=== PATIENT | male | born 1935 | race American Indian/Alaskan Native ===

== ENCOUNTER 2018-02-20 13:13 | Inpatient (IN) | payer MEDICARE ==
[2018-02-20 14:44] LABS: Basophils % (Auto) 0.3 % (0.0-1.8); Eosinophils # (Auto) 0.1 K/mm3 (0.0-0.4); Eosinophils % (Auto) 0.8 % (0.0-4.3); Hematocrit 34.7 % (35.5-45.6); Hemoglobin 11.4 gm/dl (11.8-15.2); Lymphocytes # (Auto) 1.1 K/mm3 (1.2-5.4); Mean Corpuscular HGB Conc 33 % (32-34); Mean Corpuscular Hemoglobin 32 pg (28-32); Mean Corpuscular Volume 97 fl (84-94); Monocytes # (Auto) 0.3 K/mm3 (0.0-0.8); Monocytes % (Auto) 3.2 % (0.0-7.3); Platelet Count 209 K/mm3 (140-440); Red Blood Count 3.59 M/mm3 (3.65-5.03); Red Cell Distribution Width 14.5 % (13.2-15.2)
--- NOTE | 2018-02-20 15:09 | XRay Report ---
Portable chest: Shortness of breath. The lungs are hyperlucent and hyperinflated. There are no nodules and no infiltrates. The heart is normal in size and contour. No vascular congestion. No prior exams for comparison. Pression: Chronic lung disease. No acute findings suspected.
[2018-02-20 15:10] LABS: Calcium 9.3 mg/dL (8.4-10.2)
[2018-02-20 15:13] LABS: Albumin 3.5 g/dL (3.9-5); Bilirubin,Direct 0.3 mg/dL (0-0.2)
[2018-02-20] MEDS ORDERED: NACL 0.9% 1000 ML 1,000 ML IV ONE (15:47)
--- NOTE | 2018-02-20 15:47 | Emergency Department Report ---
ED General Adult HPI - General Chief complaint: Dental/Oral Stated complaint: EVAL FOR G-TUBE Time Seen by Provider: 02/20/18 14:11 Source: patient, family, EMS Mode of arrival: Stretcher Limitations: Physical Limitation - History of Present Illness Initial comments: Patient was sent to this facility for evaluation of difficulty in swallowing. According to triage she has been choking and unable to eat. At time of my encounter and when the nurse checked him in he was not complaining of any dysphagia or choking recently. He did to me say that at times he has trouble with his pills. He denies coughing or shortness of breath. He looks obviously dehydrated. His family is not available for further interview. However, I have heard that they were interested in [place] hospitalization. I am attempting to contact them. We are generally unable to transfer patient's with emergency medical conditions [address] [place] [address] however. -: unknown Associated Symptoms: denies other symptoms - Related Data Allergies Allergy/AdvReac Type Severity Reaction Status Date / Time No Known Allergies Allergy Unverified 02/20/18 14:07 ED Review of Systems ROS: Stated complaint: EVAL FOR G-TUBE Other details as noted in HPI Constitutional: weakness (not complaining of weakness but apparently weak). denies: chills, fever Eyes: denies: eye pain, eye discharge, vision change ENT: denies: ear pain, throat pain Respiratory: denies: cough, shortness of breath, wheezing Cardiovascular: denies: chest pain, palpitations Endocrine: no symptoms reported Gastrointestinal: as per HPI. denies: abdominal pain, nausea, diarrhea Genitourinary: denies: urgency, dysuria Musculoskeletal: denies: back pain, joint swelling, arthralgia Skin: denies: rash, lesions Neurological: denies: headache, weakness, paresthesias Psychiatric: denies: anxiety, depression Hematological/Lymphatic: denies: easy bleeding, easy bruising ED Past Medical Hx - Past Medical History Previous Medical History?: Yes Hx Hypertension: Yes Hx GERD: Yes Hx Renal Disease: Yes Hx Dementia: Yes - Social History Smoking Status: Never Smoker Substance Use Type: None ED Physical Exam - General Limitations: Physical Limitation General appearance: alert, in no apparent distress, other (volume depleted) - Head Head exam: Present: atraumatic, normocephalic - Eye Eye exam: Present: normal appearance, scleral icterus - ENT ENT exam: Present: mucous membranes moist - Neck Neck exam: Present: normal inspection. Absent: tenderness, meningismus - Respiratory Respiratory exam: Present: normal lung sounds bilaterally. Absent: respiratory distress - Cardiovascular Cardiovascular Exam: Present: regular rate, normal rhythm. Absent: systolic murmur, diastolic murmur, rubs, gallop - GI/Abdominal GI/Abdominal exam: Present: soft, normal bowel sounds. Absent: distended, tenderness, guarding, rebound, rigid - Rectal Rectal exam: Present: deferred - Extremities Exam Extremities exam: Present: normal inspection, other (generally stiff but no deformity) - Back Exam Back exam: Present: normal inspection - Neurological Exam Neurological exam: Present: alert, oriented X3, CN II-XII intact (past intestinal), other (no acute focal deficit found). Absent: motor sensory deficit (has some generalized rigidity) - Psychiatric Psychiatric exam: Present: normal affect, normal mood - Skin Skin exam: Present: warm, dry, intact, normal color. Absent: rash ED Course Vital Signs 02/20/18 14:00 Temperature 98.5 F Pulse Rate 77 Respiratory 16 Rate Blood Pressure 118/61 O2 Sat by Pulse 98 Oximetry - Reevaluation(s) Reevaluation #1: IV fluids initiated. A a fluoroscopic swallow screen has been completed. Urinalysis is yet pending. The patient will be admitted for rehydration and further care and evaluation. 02/20/18 15:54 ED Medical Decision Making - Lab Data Result diagrams: 02/20/18 14:28 02/20/18 14:28 Laboratory Results - last 24 hr 02/20/18 02/20/18 02/20/18 14:28 14:28 14:28 WBC 8.0 RBC 3.59 L Hgb 11.4 L Hct 34.7 L MCV 97 H MCH 32 MCHC 33 RDW 14.5 Plt Count 209 Lymph % (Auto) 14.0 Brantley % (Auto) 3.2 Eos % (Auto) 0.8 Baso % (Auto) 0.3 Lymph # 1.1 L Brantley # 0.3 Eos # 0.1 Baso # 0.0 Seg Neutrophils % 81.7 H Seg Neutrophils # 6.5 Sodium 146 H Potassium 5.0 Chloride 107.3 H Carbon Dioxide 27 Anion Gap 17 BUN 62 H Creatinine 1.8 H Estimated GFR 36 BUN/Creatinine Ratio 34 Glucose 102 H Calcium 9.3 Magnesium 2.50 H Total Bilirubin Direct Bilirubin Indirect Bilirubin AST ALT Alkaline Phosphatase Total Protein Albumin Albumin/Globulin Ratio 02/20/18 14:28 WBC RBC Hgb Hct MCV MCH MCHC RDW Plt Count Lymph % (Auto) Brantley % (Auto) Eos % (Auto) Baso % (Auto) Lymph # Brantley # Eos # Baso # Seg Neutrophils % Seg Neutrophils # Sodium Potassium Chloride Carbon Dioxide Anion Gap BUN Creatinine Estimated GFR BUN/Creatinine Ratio Glucose Calcium Magnesium Total Bilirubin 0.70 Direct Bilirubin 0.3 H Indirect Bilirubin 0.4 AST 49 H ALT 36 Alkaline Phosphatase 64 Total Protein 6.1 L Albumin 3.5 L Albumin/Globulin Ratio 1.3 - Radiology Data Radiology results: report reviewed (chest x-ray no acute process) Critical care attestation.: If time is entered above; I have spent that time in minutes in the direct care of this critically ill patient, excluding procedure time. ED Disposition Clinical Impression: Acute renal injury, Prerenal azotemia Dysphagia Qualifiers: Dysphagia type: unspecified Qualified Code(s): R13.10 - Dysphagia, unspecified Disposition: DC-09 OP ADMIT IP TO THIS HOSP Is pt being admited?: Yes Does the pt Need Aspirin: No Condition: Stable Time of Disposition: 15:55
[2018-02-20] MEDS ORDERED: BABY ASPIRIN PO ONE (15:56)
--- NOTE | 2018-02-20 16:02 | Fluoroscopy Report ---
Barium swallow: Dysphasia. Examination perform a limited basis due to patient's physical restrictions. In the semiupright position the patient was given barium. A small amount was swallowed. The swallowing mechanism could not be evaluated however the mid and distal esophagus appeared to distend normally and there was relatively good passage of barium into the distal esophagus emptying into the stomach. No ulcerations or stenoses identified. In the latter stages of the exam a small amount contrast is identified in the bronchial tree with no respiratory response. The patient was able swallow water with no gross evidence of reflux. Impressions: Limited exam. No evidence of esophageal obstruction. Silent aspiration. Recommendation: Speech therapy consult for evaluation of aspiration. 1.8 minutes of fluoroscopy utilized. 16 spot films obtained.
[2018-02-20 18:10] LABS: Bacteria,Urine 4+ /HPF (Negative); Bilirubin,Urine NEG (Negative); Blood,Urine MOD (Negative); Color,Urine Yellow (Yellow); Mucus,Urine FEW /HPF; Protein,Urine <15 mg/dL mg/dL (Negative)
--- NOTE | 2018-02-20 19:16 | History and Physical Report ---
History of Present Illness Date of admission: 02/20/18 15:47 Chief complaint: He is confused and he keeps choking History of present illness: 82 YO Male SNF Resident at [facility] with HTN, GERD, Dementia, Debility, Malnutrition presents to ED for evaluation. Pt confused, and unable to provide detailed history. Pt history provided by family who is at bedside during exam and interview. As per family, the patient has experienced confusing , and coughing after meals, choking on his food, and shortness of breath over the past 3 weeks, with worsening symptoms over the past 1 week. Pt family is interested in PEG tube placement. Pt seen and evaluated in ED and found tohave ARF, UTI, and Encephalopathy. Pt admitted to medical floor. Past History Past Medical History: GERD, hypertension, other (dementia, debility, malnutrition) Past Surgical History: No surgical history, Other (reviewed) Social history: single. denies: smoking, alcohol abuse, prescription drug abuse Family history: hypertension Medications and Allergies Allergies Allergy/AdvReac Type Severity Reaction Status Date / Time No Known Allergies Allergy Unverified 02/20/18 14:07 Home Medications Medication Instructions Recorded Confirmed Last Taken Type Acetaminophen [Acetaminophen ER 650 mg PO Q6H PRN 02/20/18 02/20/18 Unknown History TAB] Albuterol Sulfate [Albuterol 0.63% 0.63 mg IH TID PRN 02/20/18 02/20/18 Unknown History NEBS] Docusate Sodium [Colace] 100 mg PO BID 02/20/18 02/20/18 Unknown History Gabapentin [Neurontin] 300 mg PO QHS 02/20/18 02/20/18 Unknown History Melatonin/Pyridoxine HCl (B6) 1 each PO QHS 02/20/18 02/20/18 Unknown History [Melatonin 3 mg Tablet] Memantine [Namenda] 5 mg PO QDAY 02/20/18 02/20/18 Unknown History Omeprazole 40 mg PO DAILY 02/20/18 02/20/18 Unknown History Sennosides [Senna] 17.2 mg PO BID 02/20/18 02/20/18 Unknown History risperiDONE [RisperiDONE] 1 mg PO QDAY 02/20/18 02/20/18 Unknown History Active Meds: Active Medications Sodium Chloride (Nacl 0.9% 1000 Ml) 1,000 mls @ 125 mls/hr IV ONCE ONE Stop: 02/20/18 23:46 Last Admin: 02/20/18 16:45 Dose: 125 mls/hr Review of Systems ROS unobtainable: due to mental status Exam - Constitutional Vitals: Temp Pulse Resp BP Pulse Ox 98.5 F 71 16 107/56 97 02/20/18 14:00 02/20/18 18:30 02/20/18 18:30 02/20/18 18:30 02/20/18 18:30 General appearance: Present: mild distress, cachectic - EENT Eyes: Present: PERRL ENT: hearing intact, clear oral mucosa - Respiratory Respiratory effort: normal Respiratory: bilateral: CTA - Cardiovascular Heart Sounds: Present: S1 & S2. Absent: rub, click - Extremities Extremities: pulses symmetrical, No edema Peripheral Pulses: within normal limits - Abdominal General gastrointestinal: Present: soft, non-tender, non-distended, normal bowel sounds Male genitourinary: Present: normal - Integumentary Integumentary: Present: clear, dry, clammy, decreased turgor - Musculoskeletal Musculoskeletal: generalized weakness - Psychiatric Psychiatric: no intact judgment & insight, no memory intact - Neurologic Neurologic: moves all extremities, no gait normal Results - Labs CBC & Chem 7: 02/20/18 14:28 02/20/18 14:28 Labs: Abnormal lab results 02/20/18 02/20/18 02/20/18 Range/Units 14:28 14:28 14:28 RBC 3.59 L (3.65-5.03) M/mm3 Hgb 11.4 L (11.8-15.2) gm/dl Hct 34.7 L (35.5-45.6) % MCV 97 H (84-94) fl Lymph # 1.1 L (1.2-5.4) K/mm3 Seg Neutrophils % 81.7 H (40.0-70.0) % Sodium 146 H (137-145) mmol/L Chloride 107.3 H (98-107) mmol/L BUN 62 H (9-20) mg/dL Creatinine 1.8 H (0.8-1.5) mg/dL Glucose 102 H (75-100) mg/dL Magnesium 2.50 H (1.7-2.3) mg/dL Direct Bilirubin (0-0.2) mg/dL AST (5-40) units/L Total Protein (6.3-8.2) g/dL Albumin (3.9-5) g/dL 02/20/18 Range/Units 14:28 RBC (3.65-5.03) M/mm3 Hgb (11.8-15.2) gm/dl Hct (35.5-45.6) % MCV (84-94) fl Lymph # (1.2-5.4) K/mm3 Seg Neutrophils % (40.0-70.0) % Sodium (137-145) mmol/L Chloride (98-107) mmol/L BUN (9-20) mg/dL Creatinine (0.8-1.5) mg/dL Glucose (75-100) mg/dL Magnesium (1.7-2.3) mg/dL Direct Bilirubin 0.3 H (0-0.2) mg/dL AST 49 H (5-40) units/L Total Protein 6.1 L (6.3-8.2) g/dL Albumin 3.5 L (3.9-5) g/dL Assessment and Plan - Patient Problems (1) UTI (urinary tract infection) Current Visit: Yes Status: Acute Qualifiers: Encounter type: initial encounter Plan to address problem: IV antibiotic therapy, IVF resuscitation, supportive care. (2) ARF (acute renal failure) Current Visit: Yes Status: Acute Qualifiers: Acute renal failure type: with acute tubular necrosis Qualified Code(s): N17.0 - Acute kidney failure with tubular necrosis Plan to address problem: IVF resuscitation therapy, monitor uop q shift, urinalysis, monitor serum creatnine (3) Encephalopathy Current Visit: Yes Status: Acute Plan to address problem: CT head, treat UTI, monitor uop q shift, neuro checks, aspiiration precautions, fall precautions, IVF resuscitation (4) Dysphagia Current Visit: Yes Status: Acute Qualifiers: Dysphagia type: unspecified Qualified Code(s): R13.10 - Dysphagia, unspecified Plan to address problem: Suspect secondary to worsening dementia, Will treat UTI, and monitor for improvement, Speech therapy consulted for swallow evaluation. If no improvement with treatment of UTI, will consult GI for PEG placement. (5) DVT prophylaxis Current Visit: Yes Status: Acute Plan to address problem: SCD to BLE while in bed.
[2018-02-20] MEDS ORDERED: PROVENTIL IH PRN (20:36)
[2018-02-20] MEDS ORDERED: SODIUM CHLORIDE FLUSH SYRINGE 10 ML IV PRN (20:36)
[2018-02-20] MEDS ORDERED: ZOFRAN IV PRN (20:36)
[2018-02-20] MEDS ORDERED: NON-FORMULARY (Acetaminophen [Acetaminophen Er Tab] 650 MG) PO PRN (20:38)
[2018-02-20] MEDS ORDERED: PYRIDOXINE HCL PO SCH (22:00)
[2018-02-20] MEDS ORDERED: MELATONIN PO SCH (22:00)
[2018-02-20] MEDS: SENOKOT PO SCH (22:51)
[2018-02-20] MEDS: COLACE PO SCH (22:51)
[2018-02-20] MEDS: D5/0.45NS 1,000 ML IV SCH (22:52)
[2018-02-20] MEDS: NEURONTIN PO SCH (22:52)
[2018-02-20] MEDS: SODIUM CHLORIDE FLUSH SYRINGE 10 ML IV SCH (22:53)
--- NOTE | 2018-02-21 07:58 | Cat Scan Report ---
CT HEAD WITHOUT CONTRAST: HISTORY: Confusion. TECHNIQUE: Sequential CT images without contrast. FINDINGS: Images obtained show bilateral prominence of the sulci and ventricles. There are no abnormal intra- or extra-axial blood or fluid collections. There are no focal masses or evidence of mass effect. The zayas white matter differentiation appears within normal limits. Regions of periventricular decreased attenuation are consistent with microangiopathic ischemic disease. The posterior fossa structures including the fourth ventricle, cerebellum, and brainstem appear normal. There is a focal hyperdensity in the left side of the basilar artery on image 19 which probably represents a vascular calcification. IMPRESSION: Evidence of atrophy and microangiopathic ischemic disease. No acute intracranial process noted.
[2018-02-21] MEDS ORDERED: NON-FORMULARY (Omeprazole [Omeprazole] 40 MG) PO SCH (10:00)
[2018-02-21] MEDS: COLACE PO SCH ×2 (10:07→23:35)
[2018-02-21] MEDS: NAMENDA PO SCH (10:07)
[2018-02-21] MEDS: PROTONIX PO SCH (10:07)
[2018-02-21] MEDS: SODIUM CHLORIDE FLUSH SYRINGE 10 ML IV SCH ×2 (10:07→23:59)
[2018-02-21] MEDS: RisperDAL PO SCH (10:07)
[2018-02-21] MEDS: SENOKOT PO SCH ×2 (10:07→23:36)
--- NOTE | 2018-02-21 11:08 | Progress Note ---
Assessment and Plan Assessment and plan: --Dysphagia; with poor oral intake Speech and swallow evaluation, possible modified barium swallow If abnormal possible PEG placement --Severe malnutrition secondary to poor oral intake, poor oral intake Supportive care, nutrition supplements Swallow evaluation, PEG placement as needed --Acute kidney injury; secondary to ATN Gentle hydration, monitor renal function and avoid nephrotoxins Nephrology evaluation needed --Hypertension; continue current antihypertensives and when necessary medication --Sepsis Secondary to UTI; empiric antibiotics, follow cultures, IV fluids and supportive care --Dementia; supportive care --DVT prophylaxis; Lovenox renal dose --Full CODE STATUS Follow modified barium swallow, speech evaluation If abnormal, GI consultation for PEG placement Plan of care reviewed with the patient's nurse History Interval history: Patient seen and examined medical records reviewed 82-year-old senior living resident was admitted through emergency room with malnutrition and poor oral intake and dysphagia, for evaluation of PEG tube placement Patient is noncommunicative Not in acute distress Vital signs reviewed No new events reported by the nursing staff Hospitalist Physical - Constitutional Vitals: Temp Pulse Resp BP Pulse Ox 98.5 F 81 20 106/52 95 02/21/18 07:17 02/21/18 07:17 02/21/18 07:17 02/21/18 07:17 02/21/18 07:17 General appearance: Present: no acute distress, cachectic, disheveled, other ( nonverbal) - EENT Eyes: Present: PERRL, EOM intact - Neck Neck: Present: supple, normal ROM - Respiratory Respiratory effort: normal Respiratory: bilateral: diminished, rhonchi, negative: rales, wheezing - Cardiovascular Rhythm: regular Heart Sounds: Present: S1 & S2 - Extremities Extremities: no ischemia, No edema - Abdominal General gastrointestinal: soft, non-tender, non-distended, normal bowel sounds - Integumentary Integumentary: Present: clear, warm - Psychiatric Psychiatric: other (noncommunicative) - Neurologic Neurologic: other (noncommunicative) Results - Labs CBC & Chem 7: 02/20/18 14:28 02/20/18 14:28 Labs: Laboratory Last Values WBC 8.0 K/mm3 (4.5-11.0) 02/20/18 14:28 RBC 3.59 M/mm3 (3.65-5.03) L 02/20/18 14:28 Hgb 11.4 gm/dl (11.8-15.2) L 02/20/18 14:28 Hct 34.7 % (35.5-45.6) L 02/20/18 14:28 MCV 97 fl (84-94) H 02/20/18 14:28 MCH 32 pg (28-32) 02/20/18 14:28 MCHC 33 % (32-34) 02/20/18 14:28 RDW 14.5 % (13.2-15.2) 02/20/18 14:28 Plt Count 209 K/mm3 (140-440) 02/20/18 14:28 Lymph % (Auto) 14.0 % (13.4-35.0) 02/20/18 14:28 Faulkner % (Auto) 3.2 % (0.0-7.3) 02/20/18 14:28 Eos % (Auto) 0.8 % (0.0-4.3) 02/20/18 14:28 Baso % (Auto) 0.3 % (0.0-1.8) 02/20/18 14:28 Lymph # 1.1 K/mm3 (1.2-5.4) L 02/20/18 14:28 Faulkner # 0.3 K/mm3 (0.0-0.8) 02/20/18 14:28 Eos # 0.1 K/mm3 (0.0-0.4) 02/20/18 14:28 Baso # 0.0 K/mm3 (0.0-0.1) 02/20/18 14:28 Seg Neutrophils % 81.7 % (40.0-70.0) H 02/20/18 14:28 Seg Neutrophils # 6.5 K/mm3 (1.8-7.7) 02/20/18 14:28 Sodium 146 mmol/L (137-145) H 02/20/18 14:28 Potassium 5.0 mmol/L (3.6-5.0) 02/20/18 14:28 Chloride 107.3 mmol/L (98-107) H 02/20/18 14:28 Carbon Dioxide 27 mmol/L (22-30) 02/20/18 14:28 Anion Gap 17 mmol/L 02/20/18 14:28 BUN 62 mg/dL (9-20) H 02/20/18 14:28 Creatinine 1.8 mg/dL (0.8-1.5) H 02/20/18 14:28 Estimated GFR 36 ml/min 02/20/18 14:28 BUN/Creatinine Ratio 34 % 02/20/18 14:28 Glucose 102 mg/dL (75-100) H 02/20/18 14:28 Calcium 9.3 mg/dL (8.4-10.2) 02/20/18 14:28 Magnesium 2.50 mg/dL (1.7-2.3) H 02/20/18 14:28 Total Bilirubin 0.70 mg/dL (0.1-1.2) 02/20/18 14:28 Direct Bilirubin 0.3 mg/dL (0-0.2) H 02/20/18 14:28 Indirect Bilirubin 0.4 mg/dL 02/20/18 14:28 AST 49 units/L (5-40) H 02/20/18 14:28 ALT 36 units/L (7-56) 02/20/18 14:28 Alkaline Phosphatase 64 units/L (35-129) 02/20/18 14:28 Total Protein 6.1 g/dL (6.3-8.2) L 02/20/18 14:28 Albumin 3.5 g/dL (3.9-5) L 02/20/18 14:28 Albumin/Globulin Ratio 1.3 % 02/20/18 14:28 Urine Color Yellow (Yellow) 02/20/18 17:40 Urine Turbidity Clear (Clear) 02/20/18 17:40 Urine pH 5.0 (5.0-7.0) 02/20/18 17:40 Ur Specific Wiggins 1.017 (1.003-1.030) 02/20/18 17:40 Urine Protein <15 mg/dl mg/dL (Negative) 02/20/18 17:40 Urine Glucose (UA) Neg mg/dL (Negative) 02/20/18 17:40 Urine Ketones Neg mg/dL (Negative) 02/20/18 17:40 Urine Blood Mod (Negative) 02/20/18 17:40 Urine Nitrite Pos (Negative) 02/20/18 17:40 Urine Bilirubin Neg (Negative) 02/20/18 17:40 Urine Urobilinogen 2.0 mg/dL (<2.0) 02/20/18 17:40 Ur Leukocyte Esterase Mod (Negative) 02/20/18 17:40 Urine WBC (Auto) 5.0 /HPF (0.0-6.0) 02/20/18 17:40 Urine RBC (Auto) 1.0 /HPF (0.0-6.0) 02/20/18 17:40 U Epithel Cells (Auto) 1.0 /HPF (0-13.0) 02/20/18 17:40 Urine Bacteria (Auto) 4+ /HPF (Negative) 02/20/18 17:40 Urine Mucus Few /HPF 02/20/18 17:40
[2018-02-21] MEDS: cefTRIAXone 1 GM in NACL 0.9% 20 ML IV SCH (12:01)
[2018-02-21] MEDS: D5/0.45NS 1,000 ML IV SCH (12:12)
[2018-02-21] MEDS: NEURONTIN PO SCH (23:36)
[2018-02-22] MEDS: D5/0.45NS 1,000 ML IV SCH ×2 (01:40→14:32)
[2018-02-22 05:26] LABS: Basophils % (Auto) 0.7 % (0.0-1.8); Eosinophils % (Auto) 0.9 % (0.0-4.3); Hematocrit 31.6 % (35.5-45.6); Hemoglobin 10.7 gm/dl (11.8-15.2); Lymphocytes # (Auto) 0.8 K/mm3 (1.2-5.4); Lymphocytes % (Auto) 15.1 % (13.4-35.0); Mean Corpuscular HGB Conc 34 % (32-34); Mean Corpuscular Hemoglobin 32 pg (28-32); Mean Corpuscular Volume 96 fl (84-94); Monocytes # (Auto) 0.3 K/mm3 (0.0-0.8); Monocytes % (Auto) 5.2 % (0.0-7.3); Platelet Count 185 K/mm3 (140-440); Red Cell Distribution Width 14.3 % (13.2-15.2)
[2018-02-22 05:42] LABS: Calcium 8.8 mg/dL (8.4-10.2)
--- NOTE | 2018-02-22 08:28 | Progress Note ---
Assessment and Plan Assessment and plan: --Dysphagia; with poor oral intake/aspiration risk Speech and swallow evaluated the patient , recommend modified barium swallow Scheduled for today , if abnormal may consider GI evaluation for possible PEG placement Consider tube feeding --Severe malnutrition secondary to poor oral intake, poor oral intake Supportive care, nutrition supplements Follow modified begin swallow, GI evaluation is needed --Acute kidney injury; secondary to ATN Mild improvement , continue Gentle hydration, monitor renal function and avoid nephrotoxins nephrology if needed --Hypertension; well controlled continue current antihypertensives and when necessary medication --Sepsis Secondary to UTI; urine culture positive for gram-negative rods Continued assessment , follow sensitivities and adjust antibiotics accordingly --Dementia; supportive care --DVT prophylaxis; Lovenox renal dose --Full CODE STATUS Disposition ;Follow modified barium swallow, If abnormal, GI consultation for PEG placement Plan of care reviewed with the patient's nurse History Interval history: Patient seen and examined medical records reviewed Swallow evaluation is in progress modified barium swallow study is requested for today Patient is severely malnourished, cachectic Vital signs reviewed Hospitalist Physical - Constitutional Vitals: Temp Pulse Resp BP Pulse Ox 99.5 F 95 H 16 135/62 97 02/22/18 07:30 02/22/18 07:30 02/22/18 07:30 02/22/18 07:30 02/22/18 07:30 General appearance: Present: no acute distress, cachectic, disheveled, other ( nonverbal) - EENT Eyes: Present: PERRL, EOM intact - Neck Neck: Present: supple, normal ROM - Respiratory Respiratory effort: normal Respiratory: bilateral: diminished, negative: rales, rhonchi, wheezing - Cardiovascular Rhythm: regular Heart Sounds: Present: S1 & S2 - Extremities Extremities: no ischemia, No edema - Abdominal General gastrointestinal: soft, non-tender, non-distended, normal bowel sounds - Integumentary Integumentary: Present: clear, warm - Psychiatric Psychiatric: other (minimally communicative) - Neurologic Neurologic: moves all extremities Results - Labs CBC & Chem 7: 02/22/18 05:14 02/22/18 05:14 Labs: Laboratory Last Values WBC 5.0 K/mm3 (4.5-11.0) 02/22/18 05:14 RBC 3.30 M/mm3 (3.65-5.03) L 02/22/18 05:14 Hgb 10.7 gm/dl (11.8-15.2) L 02/22/18 05:14 Hct 31.6 % (35.5-45.6) L 02/22/18 05:14 MCV 96 fl (84-94) H 02/22/18 05:14 MCH 32 pg (28-32) 02/22/18 05:14 MCHC 34 % (32-34) 02/22/18 05:14 RDW 14.3 % (13.2-15.2) 02/22/18 05:14 Plt Count 185 K/mm3 (140-440) 02/22/18 05:14 Lymph % (Auto) 15.1 % (13.4-35.0) 02/22/18 05:14 Phillips % (Auto) 5.2 % (0.0-7.3) 02/22/18 05:14 Eos % (Auto) 0.9 % (0.0-4.3) 02/22/18 05:14 Baso % (Auto) 0.7 % (0.0-1.8) 02/22/18 05:14 Lymph # 0.8 K/mm3 (1.2-5.4) L 02/22/18 05:14 Phillips # 0.3 K/mm3 (0.0-0.8) 02/22/18 05:14 Eos # 0.0 K/mm3 (0.0-0.4) 02/22/18 05:14 Baso # 0.0 K/mm3 (0.0-0.1) 02/22/18 05:14 Seg Neutrophils % 78.1 % (40.0-70.0) H 02/22/18 05:14 Seg Neutrophils # 3.9 K/mm3 (1.8-7.7) 02/22/18 05:14 Sodium 147 mmol/L (137-145) H 02/22/18 05:14 Potassium 4.7 mmol/L (3.6-5.0) 02/22/18 05:14 Chloride 111.3 mmol/L (98-107) H 02/22/18 05:14 Carbon Dioxide 27 mmol/L (22-30) 02/22/18 05:14 Anion Gap 13 mmol/L 02/22/18 05:14 BUN 37 mg/dL (9-20) H 02/22/18 05:14 Creatinine 1.6 mg/dL (0.8-1.5) H 02/22/18 05:14 Estimated GFR 50 ml/min 02/22/18 05:14 BUN/Creatinine Ratio 23 % 02/22/18 05:14 Glucose 118 mg/dL (75-100) H 02/22/18 05:14 Calcium 8.8 mg/dL (8.4-10.2) 02/22/18 05:14 Phosphorus 2.60 mg/dL (2.5-4.5) 02/22/18 05:14 Magnesium 2.10 mg/dL (1.7-2.3) 02/22/18 05:14 Total Bilirubin 0.70 mg/dL (0.1-1.2) 02/20/18 14:28 Direct Bilirubin 0.3 mg/dL (0-0.2) H 02/20/18 14:28 Indirect Bilirubin 0.4 mg/dL 02/20/18 14:28 AST 49 units/L (5-40) H 02/20/18 14:28 ALT 36 units/L (7-56) 02/20/18 14:28 Alkaline Phosphatase 64 units/L (35-129) 02/20/18 14:28 Total Protein 6.1 g/dL (6.3-8.2) L 02/20/18 14:28 Albumin 3.5 g/dL (3.9-5) L 02/20/18 14:28 Albumin/Globulin Ratio 1.3 % 02/20/18 14:28 Urine Color Yellow (Yellow) 02/20/18 17:40 Urine Turbidity Clear (Clear) 02/20/18 17:40 Urine pH 5.0 (5.0-7.0) 02/20/18 17:40 Ur Specific Leonard 1.017 (1.003-1.030) 02/20/18 17:40 Urine Protein <15 mg/dl mg/dL (Negative) 02/20/18 17:40 Urine Glucose (UA) Neg mg/dL (Negative) 02/20/18 17:40 Urine Ketones Neg mg/dL (Negative) 02/20/18 17:40 Urine Blood Mod (Negative) 02/20/18 17:40 Urine Nitrite Pos (Negative) 02/20/18 17:40 Urine Bilirubin Neg (Negative) 02/20/18 17:40 Urine Urobilinogen 2.0 mg/dL (<2.0) 02/20/18 17:40 Ur Leukocyte Esterase Mod (Negative) 02/20/18 17:40 Urine WBC (Auto) 5.0 /HPF (0.0-6.0) 02/20/18 17:40 Urine RBC (Auto) 1.0 /HPF (0.0-6.0) 02/20/18 17:40 U Epithel Cells (Auto) 1.0 /HPF (0-13.0) 02/20/18 17:40 Urine Bacteria (Auto) 4+ /HPF (Negative) 02/20/18 17:40 Urine Mucus Few /HPF 02/20/18 17:40
[2018-02-22] MEDS: COLACE PO SCH ×2 (09:51→21:57)
[2018-02-22] MEDS: NAMENDA PO SCH (09:51)
[2018-02-22] MEDS: SENOKOT PO SCH ×2 (09:51→21:57)
[2018-02-22] MEDS: SODIUM CHLORIDE FLUSH SYRINGE 10 ML IV SCH ×2 (09:51→21:58)
[2018-02-22] MEDS: RisperDAL PO SCH (09:51)
[2018-02-22] MEDS: PROTONIX PO SCH (09:51)
[2018-02-22] MEDS: cefTRIAXone 1 GM in NACL 0.9% 20 ML IV SCH (14:32)
[2018-02-22] MEDS ORDERED: SODIUM BICARBONATE FEEDTUBE PRN ×2 (16:01→16:46)
[2018-02-22] MEDS ORDERED: PANCREAZE DR 10,500 UNIT FEEDTUBE PRN ×2 (16:01→16:46)
[2018-02-22] MEDS ORDERED: SIMPLE SYRUP FEEDTUBE PRN ×4 (16:01→16:46)
--- NOTE | 2018-02-22 19:59 | XRay Report ---
FINAL REPORT EXAM: XR ABDOMEN 1V AP HISTORY: Dobhoff placement TECHNIQUE: KUB(s) view of abdomen. PRIORS: None. FINDINGS: Enteric tube tip projects slightly cephalad to EG junction level and should be advanced. Nonspecific bowel gas pattern. No apparent pneumoperitoneum. Diffuse osteopenia and mild dextrorotatory and convex curvature of lumbar spine. IMPRESSION: 1. Enteric tube position as reported. 2. Nonspecific bowel gas pattern, which may represent adynamic ileus. Followup may be warranted.
[2018-02-22] MEDS: NEURONTIN PO SCH (21:57)
--- NOTE | 2018-02-22 22:02 | XRay Report ---
FINAL REPORT EXAM: XR ABDOMEN 1V AP HISTORY: Dobhoff placement TECHNIQUE: KUB(s) view of abdomen. PRIORS: Earlier on same date. FINDINGS: Enteric tube tip now projects at EG junction level and should be advanced. No other significant interval change. IMPRESSION: 1. Enteric tube position as reported.
[2018-02-23] MEDS: D5/0.45NS 1,000 ML IV SCH (06:05)
--- NOTE | 2018-02-23 10:16 | Progress Note ---
Assessment and Plan Assessment and plan: --Dysphagia; with poor oral intake/aspiration risk Speech and swallow evaluated the patient , recommend modified barium swallow Scheduled for yesterday, canceled by speech as radiology was busy, Rescheduled for today ,if abnormal may consider GI evaluation for possible PEG placement Consider tube feeding, unable to pass the Dobbhoff Follow MDS today if unable to feed consider TPN --Severe malnutrition secondary to poor oral intake, poor oral intake Supportive care, nutrition supplements Follow modified begin swallow, GI evaluation is needed --Acute kidney injury; secondary to ATN Mild improvement , continue Gentle hydration, monitor renal function and avoid nephrotoxins nephrology if needed --Hypertension; well controlled continue current antihypertensives and when necessary medication --Sepsis Secondary to UTI; urine culture positive for gram-negative rods Continued assessment , follow sensitivities and adjust antibiotics accordingly --Dementia; supportive care --DVT prophylaxis; Lovenox renal dose --Full CODE STATUS Disposition ;Follow modified barium swallow, If abnormal, GI consultation for PEG placement Plan of care reviewed with the patient's nurse History Interval history: Since seen and examined medical records reviewed Schedule for modified barium swallow today Severely dehydrated cachectic Continue IV fluids Vital signs reviewed Hospitalist Physical - Constitutional Vitals: Temp Pulse Resp BP Pulse Ox 98.7 F 69 18 110/54 100 02/23/18 07:51 02/23/18 07:51 02/23/18 07:51 02/23/18 07:51 02/23/18 07:51 General appearance: Present: no acute distress, cachectic, disheveled - EENT Eyes: Present: PERRL, EOM intact - Neck Neck: Present: supple, normal ROM - Respiratory Respiratory effort: normal Respiratory: bilateral: diminished, negative: rales, rhonchi, wheezing - Cardiovascular Rhythm: regular Heart Sounds: Present: S1 & S2 - Extremities Extremities: no ischemia, No edema - Abdominal General gastrointestinal: soft, non-tender, non-distended, normal bowel sounds - Integumentary Integumentary: Present: clear - Psychiatric Psychiatric: other (minimally communicative) - Neurologic Neurologic: other (minimally communicative) Results - Labs CBC & Chem 7: 02/22/18 05:14 02/22/18 05:14 Labs: Laboratory Last Values WBC 5.0 K/mm3 (4.5-11.0) 02/22/18 05:14 RBC 3.30 M/mm3 (3.65-5.03) L 02/22/18 05:14 Hgb 10.7 gm/dl (11.8-15.2) L 02/22/18 05:14 Hct 31.6 % (35.5-45.6) L 02/22/18 05:14 MCV 96 fl (84-94) H 02/22/18 05:14 MCH 32 pg (28-32) 02/22/18 05:14 MCHC 34 % (32-34) 02/22/18 05:14 RDW 14.3 % (13.2-15.2) 02/22/18 05:14 Plt Count 185 K/mm3 (140-440) 02/22/18 05:14 Lymph % (Auto) 15.1 % (13.4-35.0) 02/22/18 05:14 [place] % (Auto) 5.2 % (0.0-7.3) 02/22/18 05:14 Eos % (Auto) 0.9 % (0.0-4.3) 02/22/18 05:14 Baso % (Auto) 0.7 % (0.0-1.8) 02/22/18 05:14 Lymph # 0.8 K/mm3 (1.2-5.4) L 02/22/18 05:14 [place] # 0.3 K/mm3 (0.0-0.8) 02/22/18 05:14 Eos # 0.0 K/mm3 (0.0-0.4) 02/22/18 05:14 Baso # 0.0 K/mm3 (0.0-0.1) 02/22/18 05:14 Seg Neutrophils % 78.1 % (40.0-70.0) H 02/22/18 05:14 Seg Neutrophils # 3.9 K/mm3 (1.8-7.7) 02/22/18 05:14 Sodium 147 mmol/L (137-145) H 02/22/18 05:14 Potassium 4.7 mmol/L (3.6-5.0) 02/22/18 05:14 Chloride 111.3 mmol/L (98-107) H 02/22/18 05:14 Carbon Dioxide 27 mmol/L (22-30) 02/22/18 05:14 Anion Gap 13 mmol/L 02/22/18 05:14 BUN 37 mg/dL (9-20) H 02/22/18 05:14 Creatinine 1.6 mg/dL (0.8-1.5) H 02/22/18 05:14 Estimated GFR 50 ml/min 02/22/18 05:14 BUN/Creatinine Ratio 23 % 02/22/18 05:14 Glucose 118 mg/dL (75-100) H 02/22/18 05:14 Calcium 8.8 mg/dL (8.4-10.2) 02/22/18 05:14 Phosphorus 2.60 mg/dL (2.5-4.5) 02/22/18 05:14 Magnesium 2.10 mg/dL (1.7-2.3) 02/22/18 05:14 Total Bilirubin 0.70 mg/dL (0.1-1.2) 02/20/18 14:28 Direct Bilirubin 0.3 mg/dL (0-0.2) H 02/20/18 14:28 Indirect Bilirubin 0.4 mg/dL 02/20/18 14:28 AST 49 units/L (5-40) H 02/20/18 14:28 ALT 36 units/L (7-56) 02/20/18 14:28 Alkaline Phosphatase 64 units/L (35-129) 02/20/18 14:28 Total Protein 6.1 g/dL (6.3-8.2) L 02/20/18 14:28 Albumin 3.5 g/dL (3.9-5) L 02/20/18 14:28 Albumin/Globulin Ratio 1.3 % 02/20/18 14:28 Urine Color Yellow (Yellow) 02/20/18 17:40 Urine Turbidity Clear (Clear) 02/20/18 17:40 Urine pH 5.0 (5.0-7.0) 02/20/18 17:40 Ur Specific [place] 1.017 (1.003-1.030) 02/20/18 17:40 Urine Protein <15 mg/dl mg/dL (Negative) 02/20/18 17:40 Urine Glucose (UA) Neg mg/dL (Negative) 02/20/18 17:40 Urine Ketones Neg mg/dL (Negative) 02/20/18 17:40 Urine Blood Mod (Negative) 02/20/18 17:40 Urine Nitrite Pos (Negative) 02/20/18 17:40 Urine Bilirubin Neg (Negative) 02/20/18 17:40 Urine Urobilinogen 2.0 mg/dL (<2.0) 02/20/18 17:40 Ur Leukocyte Esterase Mod (Negative) 02/20/18 17:40 Urine WBC (Auto) 5.0 /HPF (0.0-6.0) 02/20/18 17:40 Urine RBC (Auto) 1.0 /HPF (0.0-6.0) 02/20/18 17:40 U Epithel Cells (Auto) 1.0 /HPF (0-13.0) 02/20/18 17:40 Urine Bacteria (Auto) 4+ /HPF (Negative) 02/20/18 17:40 Urine Mucus Few /HPF 02/20/18 17:40
[2018-02-23] MEDS: NAMENDA PO SCH (10:51)
[2018-02-23] MEDS: PROTONIX PO SCH (10:51)
[2018-02-23] MEDS: SENOKOT PO SCH ×2 (10:51→23:13)
[2018-02-23] MEDS: COLACE PO SCH ×2 (10:51→23:14)
[2018-02-23] MEDS: RisperDAL PO SCH (10:51)
[2018-02-23] MEDS: SODIUM CHLORIDE FLUSH SYRINGE 10 ML IV SCH ×2 (10:57→23:16)
[2018-02-23] MEDS: cefTRIAXone 1 GM in NACL 0.9% 20 ML IV SCH (12:25)
--- NOTE | 2018-02-23 15:54 | Event Note ---
Date: 03/02/18 Patient had modified barium swallow study. Speech therapist recommended pured diet with thin liquids and crushed meds. Diet ordered Closely monitor, aspiration precautions.
--- NOTE | 2018-02-23 16:31 | XRay Report ---
FINAL REPORT EXAM: XR ABDOMEN 1V AP HISTORY: Check Dobhoff placement TECHNIQUE: KUB was performed Comparison: 02/22 FINDINGS: High centered KUB was performed. There is a weighted tip feeding tube which projects over the right lung base and is presumably in the right lower lobe of the lung. Bowel is diffusely distended with retained contrast in the right colon. Lung bases are clear. IMPRESSION: Weighted tip feeding tube projects over the right lung base, presumably in the right lower lobe bronchus. It should be removed immediately. This is a critical level 1 result. Findings are called on 02/23/2018 at 1613 hours.
[2018-02-23] MEDS: NEURONTIN PO SCH (23:13)
--- NOTE | 2018-02-24 09:00 | Progress Note ---
Assessment and Plan Assessment and plan: -Dysphagia; with poor oral intake/aspiration risk Modified barium swallow evaluation reviewed, speech therapist recommended pure diet thin liquids Crushed meds, Add nutrition supplements boost 3 times a day --Severe malnutrition Diet started, nutrition supplements --Acute kidney injury; secondary to ATN Mild improvement , continue Gentle hydration, monitor renal function and avoid nephrotoxins nephrology if needed --Hypertension; well controlled continue current antihypertensives and when necessary medication --Sepsis Secondary to UTI; Escherichia coli Continue Rocephin and supportive care --Dementia; supportive care --DVT prophylaxis; Lovenox renal dose --Full CODE STATUS Disposition ; if patient is tolerating oral diet And hemodynamically stable, may plan discharge back to [facility] 1[facility]2 days History Interval history: Patient feels better no new complaints Tolerating puree Diet and nutrition supplements No new events reported by the nursing staff Vital signs reviewed Alert of achiness wanting to simple questions Not in acute distress Hospitalist Physical - Constitutional Vitals: Temp Pulse Resp BP Pulse Ox 98.6 F 83 20 123/61 96 02/24/18 07:45 02/24/18 07:45 02/24/18 07:45 02/24/18 07:45 02/24/18 07:45 General appearance: Present: no acute distress, cachectic, disheveled - EENT Eyes: Present: PERRL, EOM intact - Neck Neck: Present: supple, normal ROM - Respiratory Respiratory effort: normal Respiratory: bilateral: diminished, negative: rales, rhonchi, wheezing - Cardiovascular Rhythm: regular Heart Sounds: Present: S1 & S2 - Extremities Extremities: no ischemia, No edema - Abdominal General gastrointestinal: soft, non-tender, non-distended, normal bowel sounds - Integumentary Integumentary: Present: clear, warm - Psychiatric Psychiatric: appropriate mood/affect, other (minimally communicative) - Neurologic Neurologic: moves all extremities Results - Labs CBC & Chem 7: 02/22/18 05:14 02/22/18 05:14 Labs: Laboratory Last Values WBC 5.0 K/mm3 (4.5-11.0) 02/22/18 05:14 RBC 3.30 M/mm3 (3.65-5.03) L 02/22/18 05:14 Hgb 10.7 gm/dl (11.8-15.2) L 02/22/18 05:14 Hct 31.6 % (35.5-45.6) L 02/22/18 05:14 MCV 96 fl (84-94) H 02/22/18 05:14 MCH 32 pg (28-32) 02/22/18 05:14 MCHC 34 % (32-34) 02/22/18 05:14 RDW 14.3 % (13.2-15.2) 02/22/18 05:14 Plt Count 185 K/mm3 (140-440) 02/22/18 05:14 Lymph % (Auto) 15.1 % (13.4-35.0) 02/22/18 05:14 [place] % (Auto) 5.2 % (0.0-7.3) 02/22/18 05:14 Eos % (Auto) 0.9 % (0.0-4.3) 02/22/18 05:14 Baso % (Auto) 0.7 % (0.0-1.8) 02/22/18 05:14 Lymph # 0.8 K/mm3 (1.2-5.4) L 02/22/18 05:14 [place] # 0.3 K/mm3 (0.0-0.8) 02/22/18 05:14 Eos # 0.0 K/mm3 (0.0-0.4) 02/22/18 05:14 Baso # 0.0 K/mm3 (0.0-0.1) 02/22/18 05:14 Seg Neutrophils % 78.1 % (40.0-70.0) H 02/22/18 05:14 Seg Neutrophils # 3.9 K/mm3 (1.8-7.7) 02/22/18 05:14 Sodium 147 mmol/L (137-145) H 02/22/18 05:14 Potassium 4.7 mmol/L (3.6-5.0) 02/22/18 05:14 Chloride 111.3 mmol/L (98-107) H 02/22/18 05:14 Carbon Dioxide 27 mmol/L (22-30) 02/22/18 05:14 Anion Gap 13 mmol/L 02/22/18 05:14 BUN 37 mg/dL (9-20) H 02/22/18 05:14 Creatinine 1.6 mg/dL (0.8-1.5) H 02/22/18 05:14 Estimated GFR 50 ml/min 02/22/18 05:14 BUN/Creatinine Ratio 23 % 02/22/18 05:14 Glucose 118 mg/dL (75-100) H 02/22/18 05:14 POC Glucose 101 (70-105) 02/24/18 06:59 Calcium 8.8 mg/dL (8.4-10.2) 02/22/18 05:14 Phosphorus 2.60 mg/dL (2.5-4.5) 02/22/18 05:14 Magnesium 2.10 mg/dL (1.7-2.3) 02/22/18 05:14 Total Bilirubin 0.70 mg/dL (0.1-1.2) 02/20/18 14:28 Direct Bilirubin 0.3 mg/dL (0-0.2) H 02/20/18 14:28 Indirect Bilirubin 0.4 mg/dL 02/20/18 14:28 AST 49 units/L (5-40) H 02/20/18 14:28 ALT 36 units/L (7-56) 02/20/18 14:28 Alkaline Phosphatase 64 units/L (35-129) 02/20/18 14:28 Total Protein 6.1 g/dL (6.3-8.2) L 02/20/18 14:28 Albumin 3.5 g/dL (3.9-5) L 02/20/18 14:28 Albumin/Globulin Ratio 1.3 % 02/20/18 14:28 Urine Color Yellow (Yellow) 02/20/18 17:40 Urine Turbidity Clear (Clear) 02/20/18 17:40 Urine pH 5.0 (5.0-7.0) 02/20/18 17:40 Ur Specific [place] 1.017 (1.003-1.030) 02/20/18 17:40 Urine Protein <15 mg/dl mg/dL (Negative) 02/20/18 17:40 Urine Glucose (UA) Neg mg/dL (Negative) 02/20/18 17:40 Urine Ketones Neg mg/dL (Negative) 02/20/18 17:40 Urine Blood Mod (Negative) 02/20/18 17:40 Urine Nitrite Pos (Negative) 05/21/18 17:40 Urine Bilirubin Neg (Negative) 02/20/18 17:40 Urine Urobilinogen 2.0 mg/dL (<2.0) 02/20/18 17:40 Ur Leukocyte Esterase Mod (Negative) 02/20/18 17:40 Urine WBC (Auto) 5.0 /HPF (0.0-6.0) 02/20/18 17:40 Urine RBC (Auto) 1.0 /HPF (0.0-6.0) 02/20/18 17:40 U Epithel Cells (Auto) 1.0 /HPF (0-13.0) 02/20/18 17:40 Urine Bacteria (Auto) 4+ /HPF (Negative) 02/20/18 17:40 Urine Mucus Few /HPF 02/20/18 17:40
[2018-02-24] MEDS: SENOKOT PO SCH ×2 (10:21→23:06)
[2018-02-24] MEDS: PROTONIX PO SCH (10:22)
[2018-02-24] MEDS: RisperDAL PO SCH (10:22)
[2018-02-24] MEDS: NAMENDA PO SCH (10:22)
[2018-02-24] MEDS: COLACE PO SCH ×2 (10:22→23:07)
[2018-02-24] MEDS: SODIUM CHLORIDE FLUSH SYRINGE 10 ML IV SCH (10:23)
[2018-02-24] MEDS: cefTRIAXone 1 GM in NACL 0.9% 20 ML IV SCH (12:15)
[2018-02-24] MEDS: D5/0.45NS 1,000 ML IV SCH (19:19)
[2018-02-24] MEDS: NEURONTIN PO SCH (23:06)
[2018-02-25] MEDS: SODIUM CHLORIDE FLUSH SYRINGE 10 ML IV SCH ×3 (02:16→22:50)
[2018-02-25 06:08] LABS: Basophils % (Auto) 0.1 % (0.0-1.8); Eosinophils % (Auto) 0.2 % (0.0-4.3); Hematocrit 29.3 % (35.5-45.6); Hemoglobin 10.1 gm/dl (11.8-15.2); Lymphocytes # (Auto) 1.4 K/mm3 (1.2-5.4); Mean Corpuscular HGB Conc 34 % (32-34); Mean Corpuscular Hemoglobin 33 pg (28-32); Mean Corpuscular Volume 95 fl (84-94); Monocytes # (Auto) 0.3 K/mm3 (0.0-0.8); Monocytes % (Auto) 2.9 % (0.0-7.3); Platelet Count 176 K/mm3 (140-440); Red Blood Count 3.08 M/mm3 (3.65-5.03); Red Cell Distribution Width 14.4 % (13.2-15.2)
[2018-02-25 06:30] LABS: Calcium 8.7 mg/dL (8.4-10.2)
[2018-02-25] MEDS: SENOKOT PO SCH ×2 (10:03→21:54)
[2018-02-25] MEDS: NAMENDA PO SCH (10:03)
[2018-02-25] MEDS: RisperDAL PO SCH (10:03)
[2018-02-25] MEDS: PROTONIX PO SCH (10:04)
[2018-02-25] MEDS: COLACE PO SCH ×3 (10:05→21:54)
--- NOTE | 2018-02-25 12:16 | Progress Note ---
Assessment and Plan Assessment and plan: --Sepsis Secondary to UTI; Escherichia coli Continue Rocephin and supportive care --Dysphagia; Modified barium swallow evaluation reviewed, on pured diet and thin liquids Crushed meds, Add nutrition supplements boost 3 times a day Tolerating well --Severe malnutrition ;Diet started, nutrition supplements --Acute kidney injury; secondary to ATN Mild improvement , continue Gentle hydration, monitor renal function and avoid nephrotoxins nephrology if needed --Hypertension; well controlled continue current antihypertensives and when necessary medication --Dementia; supportive care --DVT prophylaxis; Lovenox renal dose --Full CODE STATUS Disposition ; if patient is tolerating oral diet And hemodynamically stable, may plan discharge back to intermediate 1-2 days History Interval history: Patient tolerating pured diet And nutrition supplements/boost Patient feels better no new complaints Vital signs reviewed Hospitalist Physical - Constitutional Vitals: Temp Pulse Resp BP Pulse Ox 98.6 F 83 18 91/34 100 02/25/18 11:55 02/25/18 11:55 02/25/18 11:55 02/25/18 11:55 02/25/18 07:30 General appearance: Present: no acute distress, cachectic, disheveled - EENT Eyes: Present: PERRL, EOM intact - Neck Neck: Present: supple, normal ROM - Respiratory Respiratory effort: normal Respiratory: bilateral: diminished, negative: rales, rhonchi, wheezing - Cardiovascular Rhythm: regular Heart Sounds: Present: S1 & S2 - Extremities Extremities: no ischemia, No edema - Abdominal General gastrointestinal: soft, non-tender, non-distended, normal bowel sounds - Integumentary Integumentary: Present: clear, warm - Psychiatric Psychiatric: appropriate mood/affect, cooperative - Neurologic Neurologic: moves all extremities Results - Labs CBC & Chem 7: 02/25/18 05:36 02/25/18 05:36 Labs: Laboratory Last Values WBC 10.9 K/mm3 (4.5-11.0) 02/25/18 05:36 RBC 3.08 M/mm3 (3.65-5.03) L 02/25/18 05:36 Hgb 10.1 gm/dl (11.8-15.2) L 02/25/18 05:36 Hct 29.3 % (35.5-45.6) L 02/25/18 05:36 MCV 95 fl (84-94) H 02/25/18 05:36 MCH 33 pg (28-32) H 02/25/18 05:36 MCHC 34 % (32-34) 02/25/18 05:36 RDW 14.4 % (13.2-15.2) 02/25/18 05:36 Plt Count 176 K/mm3 (140-440) 02/25/18 05:36 Lymph % (Auto) 13.0 % (13.4-35.0) L 02/25/18 05:36 [place] % (Auto) 2.9 % (0.0-7.3) 02/25/18 05:36 Eos % (Auto) 0.2 % (0.0-4.3) 02/25/18 05:36 Baso % (Auto) 0.1 % (0.0-1.8) 02/25/18 05:36 Lymph # 1.4 K/mm3 (1.2-5.4) 02/25/18 05:36 [place] # 0.3 K/mm3 (0.0-0.8) 02/25/18 05:36 Eos # 0.0 K/mm3 (0.0-0.4) 02/25/18 05:36 Baso # 0.0 K/mm3 (0.0-0.1) 02/25/18 05:36 Seg Neutrophils % 83.8 % (40.0-70.0) H 02/25/18 05:36 Seg Neutrophils # 9.1 K/mm3 (1.8-7.7) H 02/25/18 05:36 Sodium 149 mmol/L (137-145) H 02/25/18 05:36 Potassium 4.6 mmol/L (3.6-5.0) 02/25/18 05:36 Chloride 110.3 mmol/L (98-107) H 02/25/18 05:36 Carbon Dioxide 24 mmol/L (22-30) 02/25/18 05:36 Anion Gap 19 mmol/L 02/25/18 05:36 BUN 55 mg/dL (9-20) H 02/25/18 05:36 Creatinine 2.6 mg/dL (0.8-1.5) H D 02/25/18 05:36 Estimated GFR 29 ml/min 02/25/18 05:36 BUN/Creatinine Ratio 21 % 02/25/18 05:36 Glucose 126 mg/dL (75-100) H 02/25/18 05:36 POC Glucose 144 (70-105) H 02/25/18 06:10 Calcium 8.7 mg/dL (8.4-10.2) 02/25/18 05:36 Phosphorus 2.60 mg/dL (2.5-4.5) 02/22/18 05:14 Magnesium 2.30 mg/dL (1.7-2.3) 02/25/18 05:36 Total Bilirubin 0.70 mg/dL (0.1-1.2) 02/20/18 14:28 Direct Bilirubin 0.3 mg/dL (0-0.2) H 02/20/18 14:28 Indirect Bilirubin 0.4 mg/dL 02/20/18 14:28 AST 49 units/L (5-40) H 02/20/18 14:28 ALT 36 units/L (7-56) 02/20/18 14:28 Alkaline Phosphatase 64 units/L (35-129) 02/20/18 14:28 Total Protein 6.1 g/dL (6.3-8.2) L 02/20/18 14:28 Albumin 3.5 g/dL (3.9-5) L 02/20/18 14:28 Albumin/Globulin Ratio 1.3 % 02/20/18 14:28 Urine Color Yellow (Yellow) 02/20/18 17:40 Urine Turbidity Clear (Clear) 02/20/18 17:40 Urine pH 5.0 (5.0-7.0) 02/20/18 17:40 Ur Specific [place] 1.017 (1.003-1.030) 02/20/18 17:40 Urine Protein <15 mg/dl mg/dL (Negative) 02/20/18 17:40 Urine Glucose (UA) Neg mg/dL (Negative) 02/20/18 17:40 Urine Ketones Neg mg/dL (Negative) 02/20/18 17:40 Urine Blood Mod (Negative) 02/20/18 17:40 Urine Nitrite Pos (Negative) 02/20/18 17:40 Urine Bilirubin Neg (Negative) 02/20/18 17:40 Urine Urobilinogen 2.0 mg/dL (<2.0) 02/20/18 17:40 Ur Leukocyte Esterase Mod (Negative) 02/20/18 17:40 Urine WBC (Auto) 5.0 /HPF (0.0-6.0) 02/20/18 17:40 Urine RBC (Auto) 1.0 /HPF (0.0-6.0) 02/20/18 17:40 U Epithel Cells (Auto) 1.0 /HPF (0-13.0) 02/20/18 17:40 Urine Bacteria (Auto) 4+ /HPF (Negative) 02/20/18 17:40 Urine Mucus Few /HPF 02/20/18 17:40
[2018-02-25] MEDS: cefTRIAXone 1 GM in NACL 0.9% 20 ML IV SCH (14:14)
[2018-02-25] MEDS: TYLENOL PO PRN (21:54)
[2018-02-25] MEDS: NEURONTIN PO SCH (21:54)
[2018-02-26] MEDS: D5/0.45NS 1,000 ML IV SCH ×2 (01:10→15:27)
--- NOTE | 2018-02-26 09:30 | Discharge Summary ---
Providers - Providers Date of Admission: 02/20/18 15:47 Date of discharge: 02/28/18 Attending physician: ARAVIND TEE 02/20/18 20:36 Speech Therapy Evaluation and Treat [CONS] Routine Reason For Exam: dysphagia 02/21/18 06:45 Consult to Wound/ET Nurse [CONS] Routine Reason For Exam: wound eval 02/22/18 16:01 Consult to Dietitian/Nutrition [CONS] Routine Physician Instructions: Assess nutrtn needs, initiate, modify, manage TF Reason For Exam: Reason for Consult: Write/Manage Tube Feeding Reason for Consult: Write/Manage Tube Feeding 02/24/18 19:52 Physical Therapy Evaluation and Treat [CONS] Routine Comment: Reason For Exam: debility/unsteady gait Primary care physician: ULISES BOLAÑOS Hospitalization Condition: Stable Disposition: DC/[place] Time spent for discharge: 33 min Core Measure Documentation - Palliative Care Palliative Care/ Comfort Measures: Not Applicable - Core Measures Any of the following diagnoses?: none Exam - Constitutional Vitals: Temp Pulse Resp BP Pulse Ox 98.9 F 68 20 106/50 98 02/26/18 07:58 02/26/18 07:58 02/26/18 07:58 02/26/18 07:58 02/26/18 07:58 General appearance: Present: no acute distress, well-nourished - EENT Eyes: Present: PERRL, EOM intact - Neck Neck: Present: supple, normal ROM - Respiratory Respiratory effort: normal Respiratory: bilateral: diminished, negative: rales, rhonchi, wheezing - Cardiovascular Rhythm: regular Heart Sounds: Present: S1 & S2 - Extremities Extremities: no ischemia, No edema - Abdominal General gastrointestinal: Present: soft, non-tender, non-distended, normal bowel sounds - Integumentary Integumentary: Present: clear, warm - Musculoskeletal Musculoskeletal: strength equal bilaterally, generalized weakness - Psychiatric Psychiatric: other (minimally communicative) - Neurologic Neurologic: other (minimally communicative) Plan Activity: advance as tolerated, fall precautions Diet: other (Puree diet, liquids, crushed medications) Special Instructions: physical therapy, occupational therapy Additional Instructions: Pured diet, thin liquids, crushed medications[ recomended by speech therapist as per modified barium swallow study report]. Nutrition supplements boost/ensure as tolerated. Fall precautions. Aspiration precautions. Patient needs to sit up 45-90, during meals, feed slow and small amounts Follow up with: PRIMARY CARE, [Referring] - 3-5 Days Prescriptions: Ciprofloxacin [Ciprofloxacin ORAL LIQ] 250 mg PO Q12H 10 Days ml
[2018-02-26] MEDS: RisperDAL PO SCH (10:00)
[2018-02-26] MEDS: NAMENDA PO SCH (10:00)
[2018-02-26] MEDS: PROTONIX PO SCH (10:00)
[2018-02-26] MEDS: SENOKOT PO SCH ×2 (10:01→22:15)
[2018-02-26] MEDS: SODIUM CHLORIDE FLUSH SYRINGE 10 ML IV SCH ×2 (10:01→22:35)
[2018-02-26] MEDS: COLACE PO SCH ×2 (10:01→22:15)
[2018-02-26] MEDS: cefTRIAXone 1 GM in NACL 0.9% 20 ML IV SCH (12:33)
--- NOTE | 2018-02-26 19:26 | Progress Note ---
Assessment and Plan Assessment and plan: --Sepsis Secondary to UTI; Escherichia coli Continue Rocephin and supportive care --Dysphagia; Modified barium swallow evaluation reviewed, speech therapist recommend pured diet and thin liquids Crushed meds, Add nutrition supplements boost 3 times a day Tolerating well --Severe malnutrition ;Diet started, nutrition supplements --Acute kidney injury; secondary to ATN Mild improvement , continue Gentle hydration, monitor renal function and avoid nephrotoxins nephrology if needed --Hypertension; well controlled continue current antihypertensives and when necessary medication --Dementia; supportive care --DVT prophylaxis; Lovenox renal dose --Full CODE STATUS Disposition ; stable to DC to retirement Patient is medically stable for discharge Case management not available processe DC History Interval history: Patient seen and examined medical records reviewed Tolerating pured diet No new complaints Vital signs reviewed Hospitalist Physical - Constitutional Vitals: Temp Pulse Resp BP Pulse Ox 98.9 F 67 20 110/48 98 02/26/18 13:58 02/26/18 13:58 02/26/18 13:58 02/26/18 13:58 02/26/18 13:58 General appearance: Present: no acute distress, cachectic, disheveled - EENT Eyes: Present: PERRL, EOM intact - Neck Neck: Present: supple, normal ROM - Respiratory Respiratory effort: normal Respiratory: negative: rales, rhonchi, wheezing - Cardiovascular Rhythm: regular Heart Sounds: Present: S1 & S2 - Extremities Extremities: no ischemia, No edema - Abdominal General gastrointestinal: soft, non-tender, non-distended, normal bowel sounds - Integumentary Integumentary: Present: clear, warm - Psychiatric Psychiatric: appropriate mood/affect - Neurologic Neurologic: moves all extremities Results - Labs CBC & Chem 7: 02/25/18 05:36 02/25/18 05:36 Labs: Laboratory Last Values WBC 10.9 K/mm3 (4.5-11.0) 02/25/18 05:36 RBC 3.08 M/mm3 (3.65-5.03) L 02/25/18 05:36 Hgb 10.1 gm/dl (11.8-15.2) L 02/25/18 05:36 Hct 29.3 % (35.5-45.6) L 02/25/18 05:36 MCV 95 fl (84-94) H 02/25/18 05:36 MCH 33 pg (28-32) H 02/25/18 05:36 MCHC 34 % (32-34) 02/25/18 05:36 RDW 14.4 % (13.2-15.2) 02/25/18 05:36 Plt Count 176 K/mm3 (140-440) 02/25/18 05:36 Lymph % (Auto) 13.0 % (13.4-35.0) L 02/25/18 05:36 [place] % (Auto) 2.9 % (0.0-7.3) 02/25/18 05:36 Eos % (Auto) 0.2 % (0.0-4.3) 02/25/18 05:36 Baso % (Auto) 0.1 % (0.0-1.8) 02/25/18 05:36 Lymph # 1.4 K/mm3 (1.2-5.4) 02/25/18 05:36 [place] # 0.3 K/mm3 (0.0-0.8) 02/25/18 05:36 Eos # 0.0 K/mm3 (0.0-0.4) 02/25/18 05:36 Baso # 0.0 K/mm3 (0.0-0.1) 02/25/18 05:36 Seg Neutrophils % 83.8 % (40.0-70.0) H 02/25/18 05:36 Seg Neutrophils # 9.1 K/mm3 (1.8-7.7) H 02/25/18 05:36 Sodium 149 mmol/L (137-145) H 02/25/18 05:36 Potassium 4.6 mmol/L (3.6-5.0) 02/25/18 05:36 Chloride 110.3 mmol/L (98-107) H 02/25/18 05:36 Carbon Dioxide 24 mmol/L (22-30) 02/25/18 05:36 Anion Gap 19 mmol/L 02/25/18 05:36 BUN 55 mg/dL (9-20) H 02/25/18 05:36 Creatinine 2.6 mg/dL (0.8-1.5) H D 02/25/18 05:36 Estimated GFR 29 ml/min 02/25/18 05:36 BUN/Creatinine Ratio 21 % 02/25/18 05:36 Glucose 126 mg/dL (75-100) H 02/25/18 05:36 POC Glucose 144 (70-105) H 02/25/18 06:10 Calcium 8.7 mg/dL (8.4-10.2) 02/25/18 05:36 Phosphorus 2.60 mg/dL (2.5-4.5) 02/22/18 05:14 Magnesium 2.30 mg/dL (1.7-2.3) 02/25/18 05:36 Total Bilirubin 0.70 mg/dL (0.1-1.2) 02/20/18 14:28 Direct Bilirubin 0.3 mg/dL (0-0.2) H 02/20/18 14:28 Indirect Bilirubin 0.4 mg/dL 02/20/18 14:28 AST 49 units/L (5-40) H 02/20/18 14:28 ALT 36 units/L (7-56) 02/20/18 14:28 Alkaline Phosphatase 64 units/L (35-129) 02/20/18 14:28 Total Protein 6.1 g/dL (6.3-8.2) L 02/20/18 14:28 Albumin 3.5 g/dL (3.9-5) L 02/20/18 14:28 Albumin/Globulin Ratio 1.3 % 02/20/18 14:28 Urine Color Yellow (Yellow) 02/20/18 17:40 Urine Turbidity Clear (Clear) 02/20/18 17:40 Urine pH 5.0 (5.0-7.0) 02/20/18 17:40 Ur Specific [place] 1.017 (1.003-1.030) 02/20/18 17:40 Urine Protein <15 mg/dl mg/dL (Negative) 02/20/18 17:40 Urine Glucose (UA) Neg mg/dL (Negative) 02/20/18 17:40 Urine Ketones Neg mg/dL (Negative) 02/20/18 17:40 Urine Blood Mod (Negative) 02/20/18 17:40 Urine Nitrite Pos (Negative) 02/20/18 17:40 Urine Bilirubin Neg (Negative) 02/20/18 17:40 Urine Urobilinogen 2.0 mg/dL (<2.0) 02/20/18 17:40 Ur Leukocyte Esterase Mod (Negative) 02/20/18 17:40 Urine WBC (Auto) 5.0 /HPF (0.0-6.0) 02/20/18 17:40 Urine RBC (Auto) 1.0 /HPF (0.0-6.0) 02/20/18 17:40 U Epithel Cells (Auto) 1.0 /HPF (0-13.0) 02/20/18 17:40 Urine Bacteria (Auto) 4+ /HPF (Negative) 02/20/18 17:40 Urine Mucus Few /HPF 02/20/18 17:40
[2018-02-26] MEDS: TYLENOL PO PRN (22:15)
[2018-02-26] MEDS: NEURONTIN PO SCH (22:15)
[2018-02-27] MEDS: D5/0.45NS 1,000 ML IV SCH ×2 (04:29→13:06)
[2018-02-27] MEDS: COLACE PO SCH ×2 (11:01→22:59)
[2018-02-27] MEDS: RisperDAL PO SCH (11:03)
[2018-02-27] MEDS: PROTONIX PO SCH (11:03)
[2018-02-27] MEDS: NAMENDA PO SCH (11:04)
[2018-02-27] MEDS: SODIUM CHLORIDE FLUSH SYRINGE 10 ML IV SCH ×2 (11:05→23:00)
[2018-02-27] MEDS: cefTRIAXone 1 GM in NACL 0.9% 20 ML IV SCH (13:00)
[2018-02-27] MEDS: SENOKOT PO SCH ×2 (14:04→23:00)
--- NOTE | 2018-02-27 17:39 | Progress Note ---
Assessment and Plan Assessment and plan: --Bleeding from penis, just to monitor If no improvement, consider urology consultation --Dysphagia; Modified barium swallow evaluation reviewed, speech therapist recommend pured diet and thin liquids Crushed meds, Add nutrition supplements boost 3 times a day And continues to have difficulty swallowing Reconsult speech therapy for evaluation --Sepsis Secondary to UTI; Escherichia coli Continue Rocephin and supportive care --Severe malnutrition ;Diet started, nutrition supplements --Acute kidney injury; secondary to ATN Mild improvement , continue Gentle hydration, monitor renal function and avoid nephrotoxins nephrology if needed --Hypertension; well controlled continue current antihypertensives and when necessary medication --Dementia; supportive care --DVT prophylaxis; Lovenox renal dose --Full CODE STATUS Disposition ; stable to DC to [facility] Patient is medically stable for discharge Unable to discharge to [facility] today Due to holiday restrictions Possible discharge back to [facility] in 1-2 days if stable History Interval history: Patient seen and examined, medical records reviewed Nurse reports mild bleeding from penis, with slight edema Patient had a condom catheter which was removed yesterday Also reports that patient has difficulty swallowing crushed medications And some cough while taking his pure diet Patient is comfortable vital signs reviewed Hospitalist Physical - Constitutional Vitals: Temp Pulse Resp BP Pulse Ox 98.2 F 72 24 113/55 97 02/27/18 14:31 02/27/18 14:31 02/27/18 14:31 02/27/18 14:31 02/27/18 14:31 General appearance: Present: no acute distress, cachectic, disheveled - EENT Eyes: Present: PERRL, EOM intact - Neck Neck: Present: supple, normal ROM - Respiratory Respiratory effort: normal Respiratory: bilateral: diminished, negative: rales, rhonchi, wheezing - Cardiovascular Rhythm: regular Heart Sounds: Present: S1 & S2 - Extremities Extremities: no ischemia, No edema - Abdominal General gastrointestinal: soft, non-tender, non-distended, normal bowel sounds - Integumentary Integumentary: Present: clear, warm - Psychiatric Psychiatric: appropriate mood/affect, other (minimally communicative) - Neurologic Neurologic: moves all extremities, other (minimally communicative) Results - Labs CBC & Chem 7: 02/25/18 05:36 02/25/18 05:36 Labs: Laboratory Last Values WBC 10.9 K/mm3 (4.5-11.0) 02/25/18 05:36 RBC 3.08 M/mm3 (3.65-5.03) L 02/25/18 05:36 Hgb 10.1 gm/dl (11.8-15.2) L 02/25/18 05:36 Hct 29.3 % (35.5-45.6) L 02/25/18 05:36 MCV 95 fl (84-94) H 02/25/18 05:36 MCH 33 pg (28-32) H 02/25/18 05:36 MCHC 34 % (32-34) 02/25/18 05:36 RDW 14.4 % (13.2-15.2) 02/25/18 05:36 Plt Count 176 K/mm3 (140-440) 02/25/18 05:36 Lymph % (Auto) 13.0 % (13.4-35.0) L 02/25/18 05:36 [place] % (Auto) 2.9 % (0.0-7.3) 02/25/18 05:36 Eos % (Auto) 0.2 % (0.0-4.3) 02/25/18 05:36 Baso % (Auto) 0.1 % (0.0-1.8) 02/25/18 05:36 Lymph # 1.4 K/mm3 (1.2-5.4) 02/25/18 05:36 [place] # 0.3 K/mm3 (0.0-0.8) 02/25/18 05:36 Eos # 0.0 K/mm3 (0.0-0.4) 02/25/18 05:36 Baso # 0.0 K/mm3 (0.0-0.1) 02/25/18 05:36 Seg Neutrophils % 83.8 % (40.0-70.0) H 02/25/18 05:36 Seg Neutrophils # 9.1 K/mm3 (1.8-7.7) H 02/25/18 05:36 Sodium 149 mmol/L (137-145) H 02/25/18 05:36 Potassium 4.6 mmol/L (3.6-5.0) 02/25/18 05:36 Chloride 110.3 mmol/L (98-107) H 02/25/18 05:36 Carbon Dioxide 24 mmol/L (22-30) 02/25/18 05:36 Anion Gap 19 mmol/L 02/25/18 05:36 BUN 55 mg/dL (9-20) H 02/25/18 05:36 Creatinine 2.6 mg/dL (0.8-1.5) H D 02/25/18 05:36 Estimated GFR 29 ml/min 02/25/18 05:36 BUN/Creatinine Ratio 21 % 02/25/18 05:36 Glucose 126 mg/dL (75-100) H 02/25/18 05:36 POC Glucose 144 (70-105) H 02/25/18 06:10 Calcium 8.7 mg/dL (8.4-10.2) 02/25/18 05:36 Phosphorus 2.60 mg/dL (2.5-4.5) 02/22/18 05:14 Magnesium 2.30 mg/dL (1.7-2.3) 02/25/18 05:36 Total Bilirubin 0.70 mg/dL (0.1-1.2) 02/20/18 14:28 Direct Bilirubin 0.3 mg/dL (0-0.2) H 02/20/18 14:28 Indirect Bilirubin 0.4 mg/dL 02/20/18 14:28 AST 49 units/L (5-40) H 02/20/18 14:28 ALT 36 units/L (7-56) 02/20/18 14:28 Alkaline Phosphatase 64 units/L (35-129) 02/20/18 14:28 Total Protein 6.1 g/dL (6.3-8.2) L 02/20/18 14:28 Albumin 3.5 g/dL (3.9-5) L 02/20/18 14:28 Albumin/Globulin Ratio 1.3 % 02/20/18 14:28 Urine Color Yellow (Yellow) 02/20/18 17:40 Urine Turbidity Clear (Clear) 02/20/18 17:40 Urine pH 5.0 (5.0-7.0) 02/20/18 17:40 Ur Specific [place] 1.017 (1.003-1.030) 02/20/18 17:40 Urine Protein <15 mg/dl mg/dL (Negative) 02/20/18 17:40 Urine Glucose (UA) Neg mg/dL (Negative) 02/20/18 17:40 Urine Ketones Neg mg/dL (Negative) 02/20/18 17:40 Urine Blood Mod (Negative) 02/20/18 17:40 Urine Nitrite Pos (Negative) 02/20/18 17:40 Urine Bilirubin Neg (Negative) 02/20/18 17:40 Urine Urobilinogen 2.0 mg/dL (<2.0) 02/20/18 17:40 Ur Leukocyte Esterase Mod (Negative) 02/20/18 17:40 Urine WBC (Auto) 5.0 /HPF (0.0-6.0) 02/20/18 17:40 Urine RBC (Auto) 1.0 /HPF (0.0-6.0) 02/20/18 17:40 U Epithel Cells (Auto) 1.0 /HPF (0-13.0) 02/20/18 17:40 Urine Bacteria (Auto) 4+ /HPF (Negative) 02/20/18 17:40 Urine Mucus Few /HPF 02/20/18 17:40
[2018-02-27] MEDS: NEURONTIN PO SCH (22:59)
[2018-02-28] MEDS: D5/0.45NS 1,000 ML IV SCH (05:55)
[2018-02-28 06:25] LABS: Calcium 8.1 mg/dL (8.4-10.2)
[2018-02-28] MEDS: RisperDAL PO SCH (10:27)
[2018-02-28] MEDS: PROTONIX PO SCH (10:27)
[2018-02-28] MEDS: NAMENDA PO SCH (10:27)
[2018-02-28] MEDS: COLACE PO SCH (10:28)
[2018-02-28] MEDS: SODIUM CHLORIDE FLUSH SYRINGE 10 ML IV SCH (10:28)
[2018-02-28] MEDS: SENOKOT PO SCH (10:28)
[2018-02-28] MEDS: cefTRIAXone 1 GM in NACL 0.9% 20 ML IV SCH (12:55)
[2018-02-28 15:20] VITALS: BP 106/50
--- NOTE | 2018-03-01 12:56 | Fluoroscopy Report ---
MODIFIED BARIUM SWALLOW History: dysphagia. Findings: Video radiography was provided by the radiologist for speech therapy to assess the swallowing mechanism. 1 fluoroscopic image was captured. Impression: Successful modified barium swallow.
== END 2018-02-28 15:58 | DRG 871 ==
LOC: ED 13:13 → 2B-ACE 15:47
PROVIDERS: ADMIT Internal Medicine; ATTEND Internal Medicine
DX: A41.9 Sepsis, unspecified organism (principal); N17.0 Acute kidney failure with tubular necrosis; E43 Unspecified severe protein-calorie malnutrition; G93.41 Metabolic encephalopathy; N39.0 Urinary tract infection, site not specified; Z68.1 Body mass index [BMI] 19.9 or less, adult; E86.0 Dehydration; I10 Essential (primary) hypertension; K21.9 Gastro-esophageal reflux disease without esophagitis; F03.90 Unspecified dementia, unspecified severity, without behavioral disturbance, psychotic disturbance, mood disturbance, and anxiety; R13.10 Dysphagia, unspecified; B96.20 Unspecified Escherichia coli [E. coli] as the cause of diseases classified elsewhere; N48.89 Other specified disorders of penis
CPT/HCPCS: 36415; 70450; 71045; 74018; 74220; 74230; 80048; 80074; 81001; 82962; 83735; 84100; 85025; 87076; 87086; 87186; 96360; 96361; G8978-GP; G8979-GP; G8996-GN; G8997-GN; J0696; J7030